=== PATIENT | male | born 2000 ===

== ENCOUNTER 2023-12-17 06:55 | Outpatient (CLI) | payer OTHER ==
--- NOTE | 2023-12-17 13:22 | MRI Report ---
PROCEDURE: Elbow RT WO INDICATIONS: RT ELBOW PX TECHNIQUE: Noncontrast coronal proton density fast spin echo and T2 fast spin echo with fat saturation, axial an d sagittal T1 spin echo and T2 fast spin echo with fat saturation through the elbow. COMPARISON: None. FINDINGS: Image quality: Excellent. Lateral structures: The lateral ulnar collateral ligament and radial collateral ligament both appear intact. The overlying common extensor tendon also appears normal. Medial structures: The ulnar collateral ligament appears intact. The overlying common flexor tendon appears normal. The ulnar nerve appears normal in size and signal within the cubital tunnel. Anterior structures: The biceps and brachialis tendons both appear intact as they insert onto the pr oximal radius and ulna, respectively. No bicipitoradial bursal fluid. The median and radial neurova scular bundles appear normal; no focal muscle atrophy to suggest nerve impingement. Posterior structures: The triceps tendon appears intact. No olecranon bursal fluid. Bone and cartilage: No bone marrow contusions or fractures. No osteochondral injuries. No intra-ar ticular loose body is seen. IMPRESSION: No acute trabecular bone injury. No significant ligament or tendon injury is seen. No definite source for elbow pain identified. Reviewed by: Nick Ferrer MD on 12/17/2023 1:20 PM PDT Approved by: Nick Ferrer MD on 12/17/2023 1:20 PM PDT Station ID: [id number]
== END 2023-12-17 06:56 | disposition home or self-care (01) ==
LOC: DI 06:55
PROVIDERS: ATTEND Student in an Organized Health Care Education/Training Program
DX: M25.521 Pain in right elbow (principal)